=== PATIENT | female | born 1995 | race Caucasian/White ===

== ENCOUNTER 2017-02-15 14:19 | Emergency (ER) | payer MEDICAID, OTHER ==
[2017-02-15 15:17] VITALS: BP 107/62
--- NOTE | 2017-02-15 15:49 | UC ---
Throat Pain/Nasal Pablo HPI - HPI Summary HPI Summary: patient always has some ear pressure and sinus congestion, but it has gotten worse the last few days, no fever, - History of Current Complaint Chief Complaint: UCGeneralIllness Stated Complaint: LEFT SIDE EAR,FACIAL PAIN Time Seen by Provider: 02/15/17 15:37 Hx Obtained From: Patient Hx Last Menstrual Period: 02/01/17 ?: No Onset/Duration: Sudden Onset, Lasting Weeks Severity: Moderate Associated Signs & Symptoms: Positive: Sinus Discomfort, Nasal Discharge - Allergies/Home Medications Allergies/Adverse Reactions: Allergies Allergy/AdvReac Type Severity Reaction Status Date / Time Amoxicillin Allergy Intermediate Hives Verified 02/15/17 15:18 Home Medications: Home Medications Norethin Acet & Estrad-Fe [06/27 1-20 mg-Mcg] 1 tab PO BEDTIME 02/15/17 [History Confirmed 02/15/17] PMH/Surg Hx/FS Hx/Imm Hx Previously Healthy: Yes - Surgical History Surgical History: None - Family History Known Family History: Negative: Cardiac Disease, Hypertension - Social History Alcohol Use: Occasionally Substance Use Type: None Smoking Status (MU): Never Smoked Tobacco Review of Systems Constitutional: Negative Skin: Negative Eyes: Negative ENT: Ear Ache, Nasal Discharge, Sinus Congestion, Sinus Pain/Tenderness Respiratory: Negative Cardiovascular: Negative Gastrointestinal: Negative Genitourinary: Negative Motor: Negative Neurovascular: Negative Musculoskeletal: Negative Neurological: Negative Psychological: Negative Is Patient Immunocompromised?: No All Other Systems Reviewed And Are Negative: Yes Physical Exam Triage Information Reviewed: Yes Appearance: Well-Appearing, Well-Nourished, Pain Distress Vital Signs: Initial Vital Signs Temp 99.6 F 02/15/17 15:12 Pulse 62 02/15/17 15:12 Resp 16 02/15/17 15:12 BP 107/62 02/15/17 15:12 Pulse Ox 100 02/15/17 15:12 Vital Signs Reviewed: Yes Eye Exam: Normal ENT: Positive: Nasal congestion, TM bulging - clear fluid bilaterally Dental Exam: Normal Neck exam: Normal Respiratory Exam: Normal Respiratory: Positive: Chest non-tender, Lungs clear, Normal breath sounds Cardiovascular Exam: Normal Cardiovascular: Positive: RRR, No Murmur, Pulses Normal Abdominal Exam: Normal Abdomen Description: Positive: Nontender, No Organomegaly, Soft Bowel Sounds: Positive: Present Musculoskeletal Exam: Normal Musculoskeletal: Positive: Strength Intact, ROM Intact, No Edema Neurological Exam: Normal Neurological: Positive: Alert, Muscle Tone Normal Psychological Exam: Normal Skin Exam: Normal Throat Pain/Nasal Course/Dx - Course Course Of Treatment: hx obtained, exam performed ,meds reviewed, treated for serous otitis, education on neti pot, flonase and seasonal allergy treatment - Differential Dx/Diagnosis Differential Diagnosis/HQI/PQRI: Otitis Media, Pharyngitis, Sinusitis, URI Provider Diagnoses: bilateral serous otitis. allergic rhinitis Discharge - Discharge Plan Condition: Stable Disposition: HOME Prescriptions: predniSONE TAB* [Deltasone TAB*] 40 mg PO DAILY #14 tab Patient Education Materials: Serous Otitis Media (ED) Additional Instructions: 1. take the prednisone as prescribed. 2. After you finishe the prednisone, start a daily claritin D for 3 weeks 3. Increas fluid intake 4. A neti pot or saline nasal wash would be beneficial with your constant sinsu congestion 5. Follow up if symtpoms worsen.
== END 2017-02-15 15:56 | disposition home or self-care (01) ==
LOC: UCCORT 14:19
DX: H65.93 Unspecified nonsuppurative otitis media, bilateral (principal); J30.9 Allergic rhinitis, unspecified; Z88.0 Allergy status to penicillin
CPT/HCPCS: 99212; G0463